=== PATIENT | male | born 1935 | race Caucasian/White ===

== ENCOUNTER 2018-02-06 09:44 | Observation (INO) ==
--- NOTE | 2018-02-06 11:29 | Emergency Department Note ---
START Narrative - START START: I examined this patient and my medical decision-making was reviewed with the COLOR EXPERT/PA/Advanced Practice Nurse/Resident Physician. I agree with the documented findings, disposition and treatment plan as described except to the extent set forth below. I did see the patient and spoke with him and examined him and patient does have weakness the point that he is not able to ambulate since yesterday and the patient is on Plavix and did fall and hit his head so he will have a head CT, labs, chest x-ray, urine testing and I did review the EKG showing normal sinus rhythm with a rate of 76 without evidence of arrhythmia. This does show evidence of right bundle-branch block. Test results pending. Patient bright and alert. He denies any pain in the head, neck, chest, abdomen or back. No vomiting or diarrhea or blood in the urine or stool or fever. He is here with his . [id number]
[2018-02-06 11:41] LABS: Basophils % 0.2 %; Eosinophils # 0.1 K/mcL (0.0-0.6); Hemoglobin 12.4 g/dL (12.9-16.9); Immature Granulocytes % 0.3 % (0-4); Lymphocytes # 0.8 K/mcL (0.6-4.6); Mean Corpuscular HGB Conc 32.6 g/dL (31.6-35.5); Mean Corpuscular Hemoglobin 29.5 pg (28.0-33.3); Mean Corpuscular Volume 90.3 fL (83.0-100.0); Mean Platelet Volume 9.8 fL (9.4-12.4); Monocytes # 0.5 K/mcL (0.0-1.3); Monocytes % 6.3 %; Neutrophils # 7.2 K/mcL (1.6-8.9); Platelet Count 179 K/mcL (140-400); Red Blood Count 4.21 M/mcL (4.19-5.50); Red Cell Distribution Width 12.3 % (11.5-14.5); Segmented Neutrophils % 83.2 %
[2018-02-06 11:58] LABS: Troponin I < 0.03 ng/mL (< 0.04)
[2018-02-06 12:06] LABS: BUN/Creatinine Ratio 13 (6-26); Blood Urea Nitrogen 18 mg/dL (8-23); Calcium 9.3 mg/dL (8.6-10.3); Carbon Dioxide 25 mEq/L (23-29); Chloride 105 mEq/L (98-107); Glucose 116 mg/dL (70-105); Osmolality,Calculated 293 (280-300); Potassium 3.9 mEq/L (3.5-5.1); Sodium 140 mEq/L (136-145); eGFR For African Americans 59 (> 60); eGFR For Non-African Americans 48 (> 60)
--- NOTE | 2018-02-06 12:09 | Emergency Department Note ---
Disposition Clinical Impression: Generalized weakness, Recurrent falls Disposition: Admitted As Inpatient Condition: Fair General Adult HPI - General Chief complaint: ED Weakness Stated complaint: weakness Time Seen by Provider: 02/06/18 10:10 Source: patient, family Mode of arrival: private vehicle Limitations: no limitations Nursing Notes Reviewed: Yes Vital Signs Reviewed: Yes - History of Present Illness HPI Narrative: Mr. Evan Elise, brought in by his , with past medical history of HTN, CKD stage III, R-sided stroke over 5 years ago, currently on Plavix, presents with 1 month onset of worsening weakness with fall 1 week ago where he hit the L side of his head. The fall was heard by in other room, who came in to find him conscious on his abdomen, he was not confused at the time nor has the noticed altered mentation since then. He endorses imbalance, leg weakness, generalized fatigue; denies headache, syncope, fever, weight loss, chest pain, shortness of breath, dizziness, or dysuria/urinary incontinence. Onset (ago): week(s) Pain Scale: 0 - Related Data Home Medications Medication Instructions Recorded Confirmed Clopidogrel [Plavix] 75 mg PO DAILY 04/12/16 02/05/18 Doxazosin Mesylate [Cardura Xl] 8 mg PO DAILY 04/12/16 02/05/18 Esomeprazole Magnesium [Nexium] 20 mg PO DAILY 04/12/16 02/05/18 Furosemide [Lasix] 20 mg PO QMWF 04/12/16 02/05/18 Simvastatin [Zocor] 20 mg PO HS 04/12/16 02/05/18 Tamsulosin HCl [Flomax] 0.4 mg PO DAILY 08/08/16 02/05/18 traMADol [Ultram] 50 mg PO DAILY 08/08/16 02/05/18 Cholecalciferol (Vitamin D3) 2,000 unit PO DAILY 02/05/18 02/05/18 [Vitamin D] Multivit-Min/FA/Lycopen/Lutein 1 each PO DAILY 02/05/18 02/05/18 [Centrum Silver Men Tablet] Metoprolol [Lopressor] 25 mg PO BID 02/06/18 02/06/18 OxyCODONE/APAP 7.5/325 [Percocet 1 tab PO BID PRN 02/06/18 02/06/18 7.5/325 MG] Polyethylene Glycol 3350 [MiraLAX] 17 gm PO DAILY 02/06/18 02/06/18 Allergies Allergy/AdvReac Type Severity Reaction Status Date / Time pregabalin [From Lyrica] Allergy See Verified 02/06/18 09:54 Comments gabapentin [From Neurontin] AdvReac Shakiness Verified 02/06/18 09:54 Constitutional: Denies: fever, chills ENT ED: Denies: congestion Cardiovascular: Denies: chest pain Respiratory: Denies: cough Gastrointestinal: Denies: abdominal pain Genitourinary: Denies: dysuria Musculoskeletal: Denies: back pain Neurological: Denies: headache Psychiatric: Denies: anxiety, depression Hematological/Lymphatic: Denies: easy bleeding Past Medical History - Past Medical History Medical history: Reports: aortic aneurysm, coronary artery disease, CVA, hyperlipidemia, hypertension, TIA, other Psychiatric history: Reports: no psych history - Social History Smoking Status: Former smoker Smokeless Tobacco Status: No Alcohol use: Reports: none Drug use: Reports: none Physical Exam - General Limitations: no limitations General appearance: alert, in no apparent distress - Head Head exam: other (L-side of forehead fading hematoma, no bleed, non-tender; no hemotympanum) - Eye Eye exam: Present: EOMI. Absent: periorbital swelling - Expanded Neck Exam Neck exam focused ED: Absent: thyroid enlargement, JVD, carotid bruit - Respiratory Respiratory exam: Present: normal lung sounds bilaterally. Absent: respiratory distress, wheezes, stridor, accessory muscle use - Cardiovascular Cardiovascular exam: Present: irregular rhythm, +S1, +S2. Absent: systolic murmur, diastolic murmur, rubs, gallop - Abdominal Exam Abdominal exam: Present: soft, Non-Tender. Absent: rigidity, Tijerina's sign, bruit, pulsatile mass - Extremities Exam Extremities exam: Present: other (no abrasion, cyanosis, or edema) - Expanded Lower Extremity Exam Hip/Pelvis exam: Present: full ROM. Absent: tenderness Lower leg exam: Absent: tenderness, laceration, Homans' sign - Neurological Exam Neurological exam: Present: alert, oriented X3, other (no facial droop, slurring of speech; has 4/5 muscle strength in bilateral lower extremities) - Skin Skin exam: Present: other (light, healing bruise L forehead) Course Course Narrative: Generalized Weakness x 1 month + fall with head contusion: ECG was obtained which showed no st elevation or depression, troponin negative CXR showed borderline cardiomegaly; also shows a mild left basilar opacity, possibly representing atelectasis or small infiltrate. At this time, Mr. Elise denies respiratory symptoms/cough/shortness of breath/fever, we have opted not to treat with antibiotics. CT head obtained showed no intracranial abnormality. CBC/BMP revealed no anemia or electrolyte abnormality. Urinalysis showed moderate blood, on chart review pt has history of trace-mod blood, currently his H&H is unremarkable. Pt is being admitted for further evaluation of weakness and recurrent fall. Vital Signs Temperature 98.2 F 02/06/18 09:46 Pulse Rate 77 02/06/18 09:46 Respiratory Rate 16 02/06/18 09:46 Blood Pressure 168/78 02/06/18 09:46 O2 Sat by Pulse Oximetry 96 02/06/18 09:46 Temperature 98.8 F 02/06/18 15:57 Pulse Rate 74 02/06/18 15:57 Respiratory Rate 16 02/06/18 15:57 Blood Pressure 179/77 02/06/18 15:57 O2 Sat by Pulse Oximetry 94 02/06/18 15:57 Oxygen Delivery Oxygen Delivery Room Air Medical Decision Making - Medical Records Medical records reviewed: Yes I reviewed the patient's medical records. - Lab Data Lab results reviewed: Yes I reviewed the patient's lab results. Result diagrams: 02/06/18 11:18 02/06/18 11:18 Lab Results 02/06/18 02/06/18 02/06/18 Range/Units 11:18 11:18 12:43 WBC 8.6 (4.3-11.1) K/mcL RBC 4.21 (4.19-5.50) M/mcL Hgb 12.4 L (12.9-16.9) g/dL Hct 38.0 (37.5-50.1) % MCV 90.3 (83.0-100.0) fL MCH 29.5 (28.0-33.3) pg MCHC 32.6 (31.6-35.5) g/dL RDW 12.3 (11.5-14.5) % Plt Count 179 (140-400) K/mcL MPV 9.8 (9.4-12.4) fL Immature Gran % 0.3 (0-4) % Seg Neutrophils % 83.2 % Lymphocytes % 9.0 % Monocytes % 6.3 % Eosinophils % 1.0 % Basophils % 0.2 % Neutrophils # 7.2 (1.6-8.9) K/mcL Lymphocytes # 0.8 (0.6-4.6) K/mcL Monocytes # 0.5 (0.0-1.3) K/mcL Eosinophils # 0.1 (0.0-0.6) K/mcL Basophils # 0.0 (0.0-0.2) K/mcL Sodium 140 (136-145) mEq/L Potassium 3.9 (3.5-5.1) mEq/L Chloride 105 (98-107) mEq/L Carbon Dioxide 25 (23-29) mEq/L BUN 18 (8-23) mg/dL Creatinine 1.40 H (0.70-1.30) mg/dL Est GFR ( Amer) 59 L (> 60) Est GFR (Non-Af Amer) 48 L (> 60) BUN/Creatinine Ratio 13 (6-26) Glucose 116 H (70-105) mg/dL Calculated Osmolality 293 (280-300) Calcium 9.3 (8.6-10.3) mg/dL Troponin I < 0.03 (< 0.04) ng/mL Urine Color Yellow (Yellow) Urine Clarity Clear (Clear) Urine pH 6.5 (5.0-8.0) pH Units Ur Specific [place] 1.014 (1.010-1.025) Urine Protein 30 H (Neg-Trace) mg/dL Urine Glucose (UA) Normal (Normal) mg/dL Urine Ketones Negative (Negative) mg/dL Urine Blood Moderate H (Negative) Urine Nitrite Negative (Negative) Urine Bilirubin Negative (Negative) Urine Urobilinogen Normal (Normal) mg/dL Ur Leukocyte Esterase Negative (Negative) Urine Microscopic RBC 5-15 H (0-3) per hpf Urine Microscopic WBC 0-3 (0-3) per hpf Ur Squamous Epith Cells Few (None-Few) per lpf Urine Bacteria None Seen (None-Few) per hpf Hyaline Casts None Seen (None-Few) per lpf - Radiology Data Radiology results reviewed: Yes I reviewed the patient's radiology results. Chest X-Ray 02/06/18 11:18 IMPRESSION: 1. Mild left basilar opacity, which could represent atelectasis or small infiltrate. 2. Borderline cardiomegaly. D/ / Anand Hillman MD / Anand Hillman MD Interpreting Provider: Anand Hillman MD Head CT 02/06/18 11:18 IMPRESSION: Multifocal small-vessel ischemic change and multiple old infarcts No mass or hemorrhage D/ / Alexei Cooper / Alexei Cooper Interpreting Provider: Alexei Cooper - EKG Data EKG #1 EKG attestation: Yes I reviewed and interpreted this EKG. EKG results narrative: ECG obtained 1000. Shows absence of p waves, Left axis deviation, no st elevation or depression. No t wave inversions in V2-6
[2018-02-06 13:36] LABS: Bilirubin,Urine Negative (Negative); Blood,Urine Moderate (Negative); Clarity,Urine Clear (Clear); Color,Urine Yellow (Yellow); Glucose,Urine (UA) Normal (Normal); Ketones,Urine Negative (Negative); Leukocyte Esterase,Urine Negative (Negative); Nitrite,Urine Negative (Negative); PH,Urine 6.5 pH Units (5.0-8.0); Protein,Urine 30 mg/dL (Neg-Trace); Specific Gravity,Urine 1.014 (1.010-1.025); Urobilinogen,Urine Normal (Normal)
[2018-02-06 13:38] LABS: Bacteria,Urine None Seen per hpf (None-Few); Hyaline Casts,Urine None Seen per lpf (None-Few); Squamous Epithelial Cell,Urine Few per lpf (None-Few); WBC,Urine 0-3 per hpf (0-3)
--- NOTE | 2018-02-06 14:39 | Internal Med History&Physical ---
Date of Encounter: 02/06/18 Time of Encounter: 14:31 Assessment and Plan (1) Generalized weakness Current visit: Yes Status: Acute Patient has complicated history of weakness with peripheral neuropathy of lower extremities as well. This is also complicated with several strokes he has had in the past and has not been as mobile since then. He has seen Neurology and Hematology/Oncology for evaluation in the past for neuropathy and weakness. He has been doing PT as an outpatient and has not had any improvement. Per reports and prior labs, he had normal A1C, folic acid, b12, tsh levels. Coordination of lower extremities is poor and currently it is difficult to say if this is in relation to prior CVAs or not. Will consult Neurology, recommendations are appreciated. Will do inpatient PT/OT evaluation once patient is off bed rest. He is currently unsafe to be discharged back home. (2) History of CVA (cerebrovascular accident) Current visit: Yes Status: Acute (3) Anemia Current visit: No Status: Acute Qualifiers: Anemia type: unspecified type Qualified Code(s): D64.9 - Anemia, unspecified (4) CKD (chronic kidney disease), stage III Current visit: No Status: Acute (5) Elevated serum immunoglobulin free light chain level Current visit: No Status: Acute He has had follow-up for this in Heme/Onc office as outpatient. He had an appointment yesterday with them and since his labs have been unremarkable, he did not need any further workup in regards to this. (6) HTN (hypertension) Current visit: No Status: Acute Qualifiers: Hypertension type: essential hypertension Qualified Code(s): I10 - Essential (primary) hypertension (7) Neuropathy, peripheral Current visit: No Status: Acute Chronic, non-diabetic with normal TSH, folate and vitmain B12 levels in the past. Seen by neurology for this and at one point treated by Heme/Onc service without resolve Qualifiers: Peripheral neuropathy type: polyneuropathy, unspecified Qualified Code(s): G62.9 - Polyneuropathy, unspecified (8) Recurrent falls Current visit: Yes Status: Acute related to problem #1 - fall precautions (9) Hematuria Current visit: Yes Status: Acute This may need further workup as outpatient. Qualifiers: Hematuria type: unspecified type Qualified Code(s): R31.9 - Hematuria, unspecified (10) Proteinuria Current visit: Yes Status: Acute This may need further workup as outpatient. Qualifiers: Proteinuria type: unspecified Qualified Code(s): R80.9 - Proteinuria, unspecified (11) BPH (benign prostatic hyperplasia) Current visit: Yes Status: Acute Continue Flomax Qualifiers: Lower urinary tract symptom presence: unspecified whether lower urinary tract symptoms present Qualified Code(s): N40.0 - Benign prostatic hyperplasia without lower urinary tract symptoms (12) DVT prophylaxis Current visit: Yes Status: Acute Patient is fall risk and so will use mechanical dvt prophylaxis Internal Medicine - H&P: HPI History of present illness: 82 year old male with past medical history of light chain dyscrasia, chronic neuropathy, CKD stage III, history of CVA was brought in by his for gradually worsening weakness and fatigue. Onset happened over period of months. He has had 3 falls since then and last week fell and hit head. He did not have any LOC. He has residual R side weakness for past 5 years. Patient has been by neurology service in the past because of chronic neuropathy and some weakness. Currently, patient works with physical therapy but does not get any sort of improvement in strength. He denies fevers/chills, recent illness, diarrhea, syncope, chest pain, shortness of breath. Patient has had neuropathy for over 10 years with no history of diabetes, normal B12, TSH, and folic acid levels. He sees Hematology/Oncology for elevated serum light chains or possible multiple myeloma. On arrival to ED patient had CT of head that showed no acute process, did show remote infarcts. Chest x-ray showed left lower lobe opacity thought to be atelectasis versus pneumonia. Urinalysis was negative for UTI but did show hematuria and proteinuria. Past Med Surg Social Fam HX - Past Medical History Medical history: aortic aneurysm, coronary artery disease, CVA, hyperlipidemia, hypertension, TIA, other Psychiatric history: no psych history - Social History Smoking Status: Former smoker Smokeless Tobacco Status: No Alcohol use: none Drug use: none Internal Medicine - H&P: Meds Clopidogrel [Plavix] 75 mg PO DAILY 04/12/16 [History] Doxazosin Mesylate [Cardura Xl] 8 mg PO DAILY 04/12/16 [History] Esomeprazole Magnesium [Nexium] 20 mg PO DAILY 04/12/16 [History] Furosemide [Lasix] 20 mg PO QMWF 04/12/16 [History] Simvastatin [Zocor] 20 mg PO HS 04/12/16 [History] Tamsulosin HCl [Flomax] 0.4 mg PO DAILY 08/08/16 [History] traMADol [Ultram] 50 mg PO DAILY 08/08/16 [History] Cholecalciferol (Vitamin D3) [Vitamin D] 2,000 unit PO DAILY 02/05/18 [History] Multivit-Min/FA/Lycopen/Lutein [Centrum Silver Men Tablet] 1 each PO DAILY 02/05 [History] Metoprolol [Lopressor] 25 mg PO BID 02/06/18 [History] OxyCODONE/APAP 7.5/325 [Percocet 7.5/325 MG] 1 tab PO BID PRN 02/06/18 [History] Polyethylene Glycol 3350 [MiraLAX] 17 gm PO DAILY 02/06/18 [History] 3 Allergy/AdvReac Type Severity Reaction Status Date / Time pregabalin [From Lyrica] Allergy See Verified 02/06/18 09:54 Comments gabapentin [From Neurontin] AdvReac Shakiness Verified 02/06/18 09:54 All Systems PM: A 10-system review of systems was performed and is negative for pertinent findings except as documented above in the HPI. Review of systems: As per HPI - Constitutional Vitals: Temp Pulse Resp BP Pulse Ox 98.2 F 75 16 170/107 96 02/06/18 09:46 02/06/18 13:13 02/06/18 13:13 02/06/18 13:13 02/06/18 13:13 - Head Head exam: Present: atraumatic, normocephalic - Eye Eye exam: Present: PERRL, conjuntiva pink, sclera anicteric Pupils: Present: PERRL - Neck Neck exam general surgery: Present: supple, trachea midline. Absent: lymphadenopathy - Respiratory Respiratory exam: Present: CTAB. Absent: accessory muscle use, rales, rhonchi, wheezes - Cardiovascular Cardiovascular exam: Present: RRR, +S1, +S2. Absent: diastolic murmur, gallop, rubs, systolic murmur - GI/Abdominal GI/Abdominal exam: Present: normal bowel sounds, soft, no peritoneal signs. Absent: distended, tenderness - Extremities Exam Extremities exam: Present: warm, radial pulses palpable and symmetrical. Absent : calf tenderness, cyanotic, pedal edema Additional comments: weakness of lower extremities - Neurological Exam Neurological exam: Present: CN II-XII intact, motor sensory deficit, oriented X3 , no focal deficits. Absent: alert, altered, normal gait, reflexes normal, pronater drift, facial droop, speech deficit Additional comments: Unable to perform gait exam because patient is unable to ambulate. - Expanded Neurological Exam Cerebellar function: heel to chowdary: Abnormal Left, Abnormal Right Upper motor neuron: [place] neglect: Normal, pronator drift: Normal, sensory extinction: Normal Sensory exam: LE 2 point discrimination: Normal, lower extremity light touch: Normal, lower extremity pin prick: Normal Neuro motor strength exam: LUE: 4, RUE: 4, LLE: 3, RLE: 3 - Skin Skin exam: Present: dry, intact Additional comments: right forearm abrasion, left elbow abrasion. Internal Med - H&P Results - Labs CBC & Chem 7: 02/06/18 11:18 02/06/18 11:18
[2018-02-06] MEDS ORDERED: Naloxone 0.4 MG/ML INJ IVP PRN (15:01)
--- NOTE | 2018-02-06 18:02 | Neurology - Consult Note ---
Date of Encounter: 02/06/18 Time of Encounter: 15:30 Assessment and Plan (1) Generalized weakness Current Visit: Yes Status: Acute I agree that this appears to be a generalized weakness other than focal leg weakness. He is able to lift his legs off the bed easily at present time but does need assistance to walk. 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 his neurological examination showed preserved DTRs at the upper extremities but absent DTRs in his knees and ankles consistent with diffuse peripheral polyneuropathy likely from history of diabetes. Presence of DTRs in hid upper extremities argue against diagnosis of Guiilain Lincoln syndrome. He denies significant back pain but he does have history of lumbar spine surgery and is on chronic pain regimen. Overall speaking the weakness has been fluctuating in the last few months therefore most likely these may be complicated by medical conditions, on top of his history of peripheral neuropathy. in terms of neurological conditions would recommend MRI of cervical spine to assess possibility of cervical myelopathy since he dose have urinary frequency and preserved DTRS in his arms. Absent DTRs in his legs can be masked by coexisting peripheral neuropathy. Will obtain MRI of lumbar spine as well to complete the work up. Please continue medical and supportive care. Thank you very much for the consultation. Total time spend in this case was approximately 55 minutes. History of Present Illness Chief complaint: bilateral leg weakness HPI: Mr. Elise is a 82 year old male with PMH significant for DM, diabetic peripheral neuropathy, CKD, chronic pain, s/p lumbar spine surgery who presented to the ER with acute onset of weakness. He is interviewed in the presence of his son. He states that over the last few months, every one or two days in a week he would feel weakness and can not get out of bed. Apparently he developed another such as episode only that it was more severe. This occurred yesterday 2pm he developed weakness and was unable to walk. he feels weak all over but mostly in his legs. He needs assistance to walk. initial CT of head was reported no acute intracranial abnormality. he denies significant pain. He does have chronic pain syndrome and is on chronic pain regimen. He has urinary frequency and says that he needs to go to bathroom every one or two hours. He has history of peripheral neuropathy from diabetes, and he also has chronic kidney disease. Past Med Surg Social Fam HX - Past Medical History Medical history: aortic aneurysm, coronary artery disease, CVA, hyperlipidemia, hypertension, TIA, other Psychiatric history: no psych history - Social History Smoking Status: Former smoker Smokeless Tobacco Status: No Alcohol use: none Drug use: none Medications and Allergies Clopidogrel [Plavix] 75 mg PO DAILY 04/12/16 [History] Doxazosin Mesylate [Cardura Xl] 8 mg PO DAILY 04/12/16 [History] Esomeprazole Magnesium [Nexium] 20 mg PO DAILY 04/12/16 [History] Furosemide [Lasix] 20 mg PO QMWF 04/12/16 [History] Simvastatin [Zocor] 20 mg PO HS 04/12/16 [History] Tamsulosin HCl [Flomax] 0.4 mg PO DAILY 08/08/16 [History] traMADol [Ultram] 50 mg PO DAILY 08/08/16 [History] Cholecalciferol (Vitamin D3) [Vitamin D] 2,000 unit PO DAILY 02/05/18 [History] Multivit-Min/FA/Lycopen/Lutein [Centrum Silver Men Tablet] 1 each PO DAILY 02/05 [History] Metoprolol [Lopressor] 25 mg PO BID 02/06/18 [History] OxyCODONE/APAP 7.5/325 [Percocet 7.5/325 MG] 1 tab PO BID PRN 02/06/18 [History] Polyethylene Glycol 3350 [MiraLAX] 17 gm PO DAILY 02/06/18 [History] 3 Allergy/AdvReac Type Severity Reaction Status Date / Time pregabalin [From Lyrica] Allergy See Verified 02/06/18 09:54 Comments gabapentin [From Neurontin] AdvReac Shakiness Verified 02/06/18 09:54 All Systems: The remainder of the systems were reviewed and are negative Physical Examination - Vital Signs Vital Signs: Initial Vital Signs Temp Pulse Resp BP Pulse Ox 98.2 F 77 16 168/78 96 02/06/18 09:46 02/06/18 09:46 02/06/18 09:46 02/06/18 09:46 02/06/18 09:46 - Constitutional General appearance: chronically ill - Neurologic Sensorimotor examination: other (stokcing pattern of sensory reduction noted bilaterally. ) Motor examination - right side: 4/5: deltoids, biceps, triceps, wrist flexion, wrist extension, manufacturer, hip flexors, tibialis Anterior, quadriceps, toe extension (EHL), plantarflexion Motor examination - left side: 4/5: deltoids, biceps, triceps, wrist flexion, wrist extension, hip flexors, manufacturer, quadriceps, tibialis Anterior, toe extension (EHL), plantarflexion Detailed sensory examination: other (Stocking pattern of sensory reduction noted bilaterally) Posture: other (None) Reflexes: Biceps: 2+, Triceps: 2+, Brachioradialis: 2+, Patella: 0, Achilles: 0 Mental Status Examination: awake, alert, oriented to person, oriented to place, oriented to time, follows commands appropriately, answers questions appropriately, no agnosia, no aphasia, no aproxia Cranial nerve examination: PERRL, EOMI, visual mendoza intact, corneal reflexes brisk symmetrically, sensory to face intact, mastication intact, no facial asymmetry is present, no dysarthria, hearing is intact symmetrically, soft palate elevates bilaterally upon phonation, gag reflex intact, flexes SCM and trapezius muscles symmetrically with full power, tongue protrudes midline, no atrophy or facial fasiculations present Cerebellar examination: no dysmetria, performs finger to nose and heel to chowdary symmetrically without ataxia (Normal FTN), no gait ataxia (Gait not assessed), no truncal ataxia (Gait not assessed), no difficulty with rapid alternating movements Results - Laboratory Findings CBC and BMP: 02/06/18 11:18 02/06/18 11:18 Abnormal lab findings: Abnormal lab results Hgb 12.4 g/dL (12.9-16.9) L 02/06/18 11:18 Creatinine 1.40 mg/dL (0.70-1.30) H 02/06/18 11:18 Est GFR ( Amer) 59 (> 60) L 02/06/18 11:18 Est GFR (Non-Af Amer) 48 (> 60) L 02/06/18 11:18 Glucose 116 mg/dL (70-105) H 02/06/18 11:18 Urine Protein 30 mg/dL (Neg-Trace) H 02/06/18 12:43 Urine Blood Moderate (Negative) H 02/06/18 12:43 Urine Microscopic RBC 5-15 per hpf (0-3) H 02/06/18 12:43 - Diagnostic Findings Additional findings: CT/CT head/brain wo con IMPRESSION: Multifocal small-vessel ischemic change and multiple old infarcts No mass or hemorrhage Consult Discharge Plan - Plan Referrals: Cher Angulo CNP [Primary Care Provider] -
[2018-02-07] MEDS: *HR* OxyCODONE/APAP 7.5/325 TABLET PO PRN (04:30)
[2018-02-07 06:26] LABS: Basophils % 0.3 %; Eosinophils # 0.1 K/mcL (0.0-0.6); Eosinophils % 0.6 %; Hemoglobin 11.5 g/dL (12.9-16.9); Immature Granulocytes % 0.3 % (0-4); Lymphocytes # 0.8 K/mcL (0.6-4.6); Mean Corpuscular HGB Conc 32.9 g/dL (31.6-35.5); Mean Corpuscular Volume 88.4 fL (83.0-100.0); Mean Platelet Volume 9.9 fL (9.4-12.4); Monocytes # 0.5 K/mcL (0.0-1.3); Monocytes % 6.6 %; Neutrophils # 6.6 K/mcL (1.6-8.9); Platelet Count 165 K/mcL (140-400); Red Blood Count 3.96 M/mcL (4.19-5.50); Red Cell Distribution Width 12.1 % (11.5-14.5); Segmented Neutrophils % 82.2 %
[2018-02-07 06:27] LABS: INR 1.3; Prothrombin Time 13.8 Seconds (9.4-12.1)
[2018-02-07 06:44] LABS: Alanine Aminotransferase 8 Units/L (7-52); Albumin 3.7 g/dL (3.5-5.7); Alkaline Phosphatase 56 Units/L (34-104); Aspartate Amino Transferase 13 Units/L (13-39); BUN/Creatinine Ratio 15 (6-26); Bilirubin,Total 1.1 mg/dL (0.3-1.0); Blood Urea Nitrogen 19 mg/dL (8-23); Calcium 8.9 mg/dL (8.6-10.3); Carbon Dioxide 25 mEq/L (23-29); Chloride 108 mEq/L (98-107); Glucose 94 mg/dL (70-105); Osmolality,Calculated 290 (280-300); Phosphorous 3.5 mg/dL (2.7-4.5); Potassium 4.1 mEq/L (3.5-5.1); Sodium 139 mEq/L (136-145); Total Protein 5.8 g/dL (6.4-8.9); eGFR For African Americans > 60 (> 60); eGFR For Non-African Americans 53 (> 60)
[2018-02-07 06:45] LABS: Albumin/Globulin Ratio 1.8 (1.1-2.2); Globulin 2.1 g/dL (2.4-3.5)
[2018-02-07] MEDS: traMADol 50 MG TABLET PO SCH (08:17)
[2018-02-07] MEDS: Cholecalciferol (D-3) 1,000 UNIT TABLET PO SCH (08:17)
[2018-02-07] MEDS: Multivit/Ca/Min/Fe/FA 1 TAB TABLET PO SCH (08:17)
--- NOTE | 2018-02-07 13:04 | Neurology Progress Note ---
Date of Encounter: 02/07/18 Time of Encounter: 13:02 Assessment and Plan (1) Generalized weakness Current Visit: Yes Status: Acute I believe that his leg weakness are secondary to chronic worsening distal peripheral neuropathy and de-conditioning. his neurological examination showed bilateral leg weakness, with muscle strength at least 4/5 bilaterally. He has no knee or ankle reflex which is consistent with distal neuropathy, but DTRs in the upper extremities are well preserved and this argue against diagnosis of Guillain barre syndrome. His symptom have been going on intermittently in the last few months so the course of the disease not consistent with GUillain barre syndrome. He has no signs of ALS or other neurological conditions that cause muscle weakness. MRI of cervical spine showed no evidence of myelopathy. Recommend PT and social work evaluation for rehab. From neurological perspective , will recommend no further inpatient testing. He can follow up with DR. Lainez as outpatient for his peripheral neuropathy. he has seen Dr. Lainez in the past. Total time spent with this case abour 35 minutes. Subjective Principal diagnosis: leg weakness Interval history: Patient seen and examined. He is wide awake and says that he does not know whether he is better or not since he did not get up and walk. He is able to lift his legs off the bed bilaterally. MRI of cervical and lumbar spine review and i did not identify any significant pathology that can explain his leg weakness. Objective - Constitutional Vitals: Temp Pulse Resp BP Pulse Ox 98.3 F 56 16 169/73 90 02/07/18 10:10 02/07/18 10:10 02/07/18 10:10 02/07/18 10:10 02/07/18 10:10 - Neurological Exam Sensorimotor examination: Present: other (stokcing pattern of sensory reduction noted bilaterally. ) Motor examination - left side: 4/5: deltoids, biceps, triceps, wrist flexion, wrist extension, hip flexors, knowledge manager, quadriceps, tibialis Anterior, toe extension (EHL), plantarflexion Sensation intact: Present: other (Stocking pattern of sensory reduction noted bilaterally) Posture: Present: other (None) Mental Status Examination: Present: awake, alert, oriented to person, oriented to place, oriented to time, follows commands appropriately, answers questions appropriately, no agnosia, no aphasia, no aproxia Cranial nerve examination: Present: PERRL, EOMI, visual mendoza intact, corneal reflexes brisk symmetrically, sensory to face intact, mastication intact, no facial asymmetry is present, no dysarthria, hearing is intact symmetrically, soft palate elevates bilaterally upon phonation, gag reflex intact, flexes SCM and trapezius muscles symmetrically with full power, tongue protrudes midline, no atrophy or facial fasiculations present Cerebellar examination: Present: no dysmetria, performs finger to nose and heel to chowdary symmetrically without ataxia (Normal FTN), no gait ataxia (Gait not assessed), no truncal ataxia (Gait not assessed), no difficulty with rapid alternating movements Results - Laboratory Findings CBC and BMP: 02/07/18 05:36 02/07/18 05:36 Abnormal lab findings: Abnormal lab results RBC 3.96 M/mcL (4.19-5.50) L 02/07/18 05:36 Hgb 11.5 g/dL (12.9-16.9) L 02/07/18 05:36 Hct 35.0 % (37.5-50.1) L 02/07/18 05:36 PT 13.8 Seconds (9.4-12.1) H 02/07/18 05:36 Chloride 108 mEq/L (98-107) H 02/07/18 05:36 Est GFR (Non-Af Amer) 53 (> 60) L 02/07/18 05:36 Total Bilirubin 1.1 mg/dL (0.3-1.0) H 02/07/18 05:36 Serum Total Protein 5.8 g/dL (6.4-8.9) L 02/07/18 05:36 Globulin 2.1 g/dL (2.4-3.5) L 02/07/18 05:36 Urine Protein 30 mg/dL (Neg-Trace) H 02/06/18 12:43 Urine Blood Moderate (Negative) H 02/06/18 12:43 Urine Microscopic RBC 5-15 per hpf (0-3) H 02/06/18 12:43 - Diagnostic Findings Additional findings: MR/MR cervical spine wo con IMPRESSION: Mild degenerative changes without significant canal narrowing. No cord compression. No cord signal abnormality. MR/MR lumbar spine wo con IMPRESSION: No severe spinal canal or foraminal stenosis. CT/CT head/brain wo con IMPRESSION: Multifocal small-vessel ischemic change and multiple old infarcts No mass or hemorrhage Consult Discharge Plan - Plan Referrals: Cher Angulo CNP [Primary Care Provider] -
--- NOTE | 2018-02-07 16:05 | Internal Med Progress Note ---
Date of Encounter: 02/07/18 Time of Encounter: 15:42 - Assessment and plan (1) Neuropathy, peripheral Current Visit: No Status: Acute Assessment and plan: per hx. Follows with [facility] neuropathy clinic. Last seen 01/2017 and was recommended to have EMG/NCV study at that time. Now with worsening generalized weakness and deconditioning. Cervical and lumbar spine without severe/ significant stenosis. Evaluated by neurology who noted symptoms consistent with peripheral neuropathy and did not feel symptoms were secondary to a central neurological etiology. Cont supportive acre for now. PT/OT. Will discuss the possibility of transfer to [facility] Qualifiers: Peripheral neuropathy type: polyneuropathy, unspecified Qualified Code(s): G62.9 - Polyneuropathy, unspecified (2) History of CVA (cerebrovascular accident) Current Visit: Yes Status: Acute Assessment and plan: per hx. Cont home Plavix, BB, statin (3) HTN (hypertension) Current Visit: No Status: Acute Assessment and plan: per hx. BP controlled. Continue home BB add low-dose amlodipine. Monitor BP and titrate PRN Qualifiers: Hypertension type: essential hypertension Qualified Code(s): I10 - Essential (primary) hypertension (4) Recurrent falls Current Visit: Yes Status: Acute (5) DVT prophylaxis Current Visit: Yes Status: Acute - Subjective Interval history: Seen and examined at bedside, , patient is new to me. Information obtained from chart review and patient report. Sitting up on bedside commode, working with therapy. - Constitutional Vitals: Temp Pulse Resp BP Pulse Ox 97.3 F L 70 15 164/92 96 02/07/18 14:48 02/07/18 14:48 02/07/18 14:48 02/07/18 14:48 02/07/18 14:48 Internal Medicine: Result - Labs CBC & Chem 7: 02/07/18 05:36 02/07/18 05:36 Labs: Short CBC 02/07/18 Range/Units 05:36 WBC 8.0 (4.3-11.1) K/mcL Hgb 11.5 L (12.9-16.9) g/dL Hct 35.0 L (37.5-50.1) % Plt Count 165 (140-400) K/mcL Neutrophils # 6.6 (1.6-8.9) K/mcL BMP 02/07/18 05:36 Sodium 139 Potassium 4.1 Chloride 108 H Carbon Dioxide 25 BUN 19 Creatinine 1.29 Glucose 94 Calcium 8.9 Liver Function 02/07/18 Range/Units 05:36 Total Bilirubin 1.1 H (0.3-1.0) mg/dL AST 13 (13-39) Units/L ALT 8 (7-52) Units/L Alkaline Phosphatase 56 (34-104) Units/L Albumin 3.7 (3.5-5.7) g/dL - ABG Interpretation ABG results: PT/INR, D-dimer PT 13.8 Seconds (9.4-12.1) H 02/07/18 05:36 - Impressions Impressions Cervical Spine MRI 02/06/18 15:19 IMPRESSION: Mild degenerative changes without significant canal narrowing. No cord compression. No cord signal abnormality. D/ / Navjot Davalos MD / Navjot Davalos MD Interpreting Provider: Navjot Davalos MD Lumbar Spine MRI 02/06/18 15:20 IMPRESSION: No severe spinal canal or foraminal stenosis. D/ / 02/06/2018 22:03:23 Wilbert Romano MD / lito Interpreting Provider: Wilbert Romano MD Consult Discharge Plan - Plan Referrals: Cher Angulo, DIANDRA [Primary Care Provider] -
[2018-02-07] MEDS: amLODIPine 5 MG TABLET PO SCH (18:04)
[2018-02-07] MEDS: *HR* Heparin 5,000 UNIT/ML VIAL SQ SCH (23:02)
[2018-02-08] MEDS: Acetaminophen 325 MG TABLET PO PRN (03:36)
[2018-02-08] MEDS: *HR* OxyCODONE/APAP 7.5/325 TABLET PO PRN ×2 (03:43→21:23)
[2018-02-08] MEDS: *HR* Heparin 5,000 UNIT/ML VIAL SQ SCH ×3 (04:55→20:51)
[2018-02-08] MEDS: traMADol 50 MG TABLET PO SCH (08:47)
[2018-02-08] MEDS: Multivit/Ca/Min/Fe/FA 1 TAB TABLET PO SCH (08:48)
[2018-02-08] MEDS: amLODIPine 5 MG TABLET PO SCH (08:48)
[2018-02-08] MEDS: Cholecalciferol (D-3) 1,000 UNIT TABLET PO SCH (08:48)
[2018-02-08] MEDS ORDERED: Furosemide 40 MG/4 ML VIAL IVP ONE (14:57)
--- NOTE | 2018-02-08 16:09 | Internal Med Progress Note ---
Date of Encounter: 02/08/18 Time of Encounter: 16:06 - Assessment and plan (1) Neuropathy, peripheral Current Visit: No Status: Acute Assessment and plan: per hx. Previously evaluated by [facility] neuropathy clinic. Last seen 01/2017 and was recommended to have EMG/NCV study at that time. Now with worsening generalized weakness, deconditioning and falls. Cervical and lumbar spine without severe/significant stenosis. Evaluated by neurology who noted symptoms consistent with peripheral neuropathy and did not feel symptoms were secondary to a central neurological etiology. Cont supportive acre for now. PT/OT. Will discuss the possibility of transfer to [facility] Qualifiers: Peripheral neuropathy type: polyneuropathy, unspecified Qualified Code(s): G62.9 - Polyneuropathy, unspecified (2) History of CVA (cerebrovascular accident) Current Visit: Yes Status: Acute Assessment and plan: per hx. Cont home Plavix, BB, statin (3) HTN (hypertension) Current Visit: No Status: Acute Assessment and plan: per hx. BP controlled. Continue home BB add low-dose amlodipine. Monitor BP and titrate PRN Qualifiers: Hypertension type: essential hypertension Qualified Code(s): I10 - Essential (primary) hypertension (4) Recurrent falls Current Visit: Yes Status: Acute Assessment and plan: In the setting of peripheral neuropathy as noted above. Continue fall precautions, PT/OT. Will likely need SNF. (5) DVT prophylaxis Current Visit: Yes Status: Acute Assessment and plan: heparin - Subjective Interval history: Seen and examined at bedside;information obtained from chart review, patient report and . Patient says he feels weak and tired, essentially unchanged from yesterday's exam. reports patient appears worse than presentation. Says he is not eating much and appears to be more shaky/jittery. His history of peripheral neuropathy and does endorse that he is followed with specialists at [facility]. Says she was never advised to have outpatient testing done. The possibility of transferring to [facility] or other tertiary hospital for higher level care for further neuromuscular diagnostic testing. like to hold at this time. - Constitutional Vitals: Temp Pulse Resp BP Pulse Ox 98.7 F 108 18 156/75 96 02/08/18 15:29 02/08/18 15:29 02/08/18 15:29 02/08/18 15:29 02/08/18 15:29 General appearance: Present: A&O X 3, pleasant - Head Head exam: Present: atraumatic, normocephalic - Eye Eye exam: Present: PERRL, conjuntiva pink, sclera anicteric Pupils: Present: PERRL - Neck Neck exam general surgery: Present: supple, trachea midline. Absent: lymphadenopathy - Respiratory Respiratory exam: Present: CTAB, rales, rhonchi. Absent: accessory muscle use, wheezes - Cardiovascular Cardiovascular exam: Present: RRR, +S1, +S2. Absent: diastolic murmur, gallop, rubs, systolic murmur - GI/Abdominal GI/Abdominal exam: Present: normal bowel sounds, soft, no peritoneal signs. Absent: distended, tenderness - Extremities Exam Extremities exam: Present: pedal edema, warm, radial pulses palpable and symmetrical. Absent: calf tenderness, cyanotic - Neurological Exam Neurological exam: Present: CN II-XII intact, oriented X3, no focal deficits. Absent: pronater drift, facial droop, speech deficit - Skin Skin exam: Present: dry, intact Internal Medicine: Result - Labs CBC & Chem 7: 02/07/18 05:36 02/07/18 05:36 - ABG Interpretation ABG results: PT/INR, D-dimer PT 13.8 Seconds (9.4-12.1) H 02/07/18 05:36 - Impressions Impressions Chest X-Ray 02/08/18 12:22 IMPRESSION: Patient slightly rotated with a questionable small left pleural effusion. Otherwise stable chest from 02/06/2018. D/ / Khadijah Hope MD / Khadijah Hope MD Interpreting Provider: Khadijah Hope MD Consult Discharge Plan - Plan Referrals: Cher Angulo, DIANDRA [Primary Care Provider] -
[2018-02-09] MEDS: *HR* Heparin 5,000 UNIT/ML VIAL SQ SCH ×3 (05:03→22:56)
[2018-02-09 05:48] LABS: Hematocrit 35.6 % (37.5-50.1); Hemoglobin 11.9 g/dL (12.9-16.9); Mean Corpuscular HGB Conc 33.4 g/dL (31.6-35.5); Mean Corpuscular Hemoglobin 29.6 pg (28.0-33.3); Mean Corpuscular Volume 88.6 fL (83.0-100.0); Mean Platelet Volume 9.6 fL (9.4-12.4); Platelet Count 167 K/mcL (140-400); Red Blood Count 4.02 M/mcL (4.19-5.50)
[2018-02-09 06:13] LABS: Calcium 8.8 mg/dL (8.6-10.3); Potassium 3.9 mEq/L (3.5-5.1)
[2018-02-09] MEDS: traMADol 50 MG TABLET PO SCH (09:48)
[2018-02-09] MEDS: Multivit/Ca/Min/Fe/FA 1 TAB TABLET PO SCH (09:48)
[2018-02-09] MEDS: amLODIPine 5 MG TABLET PO SCH (09:49)
[2018-02-09] MEDS: Cholecalciferol (D-3) 1,000 UNIT TABLET PO SCH (09:49)
[2018-02-09] MEDS: Furosemide 20 MG TABLET PO SCH (09:50)
[2018-02-09] MEDS: *HR* OxyCODONE/APAP 7.5/325 TABLET PO PRN (14:03)
[2018-02-09] MEDS ORDERED: 0.9 % Sodium Chloride 1,000 ML IVC SCH (16:45)
--- NOTE | 2018-02-09 16:51 | Internal Med Progress Note ---
Date of Encounter: 02/09/18 Time of Encounter: 16:56 - Assessment and plan (1) Neuropathy, peripheral Current Visit: No Status: Acute Assessment and plan: per hx. Previously evaluated by [facility] neuropathy clinic. Last seen 01/2017 and was recommended to have EMG/NCV study at that time. Now with worsening generalized weakness, deconditioning and falls. Cervical and lumbar spine without severe/significant stenosis. Evaluated by neurology who noted symptoms consistent with peripheral neuropathy and did not feel symptoms were secondary to a central neurological etiology. Cont supportive acre for now. PT/OT. Will discuss the possibility of transfer to [facility] Qualifiers: Peripheral neuropathy type: polyneuropathy, unspecified Qualified Code(s): G62.9 - Polyneuropathy, unspecified (2) History of CVA (cerebrovascular accident) Current Visit: Yes Status: Acute Assessment and plan: per hx. Cont home Plavix, BB, statin (3) HTN (hypertension) Current Visit: No Status: Acute Assessment and plan: per hx. BP controlled. Continue home BB add low-dose amlodipine. Monitor BP and titrate PRN Qualifiers: Hypertension type: essential hypertension Qualified Code(s): I10 - Essential (primary) hypertension (4) Recurrent falls Current Visit: Yes Status: Acute Assessment and plan: In the setting of peripheral neuropathy as noted above. Continue fall precautions, PT/OT. Will likely need SNF. (5) CKD (chronic kidney disease), stage III Current Visit: No Status: Acute Assessment and plan: per hx. Renal function at baseline (6) DVT prophylaxis Current Visit: Yes Status: Acute Assessment and plan: heparin - Subjective Interval history: Seen and examined at bedside. Says he feels about the same, worked with PT a little bit today but did not get out of bed. Still with lower extremity weakness with associated numbness and tingling. at bedside and updated. She would like to defer transfer to [facility] at this time. Would like patient to go to [facility] and gain some strength with [facility] outpatient follow-up. - Constitutional Vitals: Temp Pulse Resp BP Pulse Ox 100 F H 82 16 111/69 92 02/09/18 15:34 02/09/18 15:34 02/09/18 15:34 02/09/18 15:34 02/09/18 15:34 General appearance: Present: A&O X 2, A&O X 3, pleasant - Head Head exam: Present: atraumatic, normocephalic - Eye Eye exam: Present: PERRL, conjuntiva pink, sclera anicteric Pupils: Present: PERRL - Neck Neck exam general surgery: Present: supple, trachea midline. Absent: lymphadenopathy - Respiratory Respiratory exam: Present: CTAB. Absent: accessory muscle use, rales, rhonchi, wheezes - Cardiovascular Cardiovascular exam: Present: RRR, +S1, +S2. Absent: diastolic murmur, gallop, rubs, systolic murmur - GI/Abdominal GI/Abdominal exam: Present: normal bowel sounds, soft, no peritoneal signs. Absent: distended, tenderness - Extremities Exam Extremities exam: Present: warm, radial pulses palpable and symmetrical. Absent : calf tenderness, cyanotic, pedal edema - Neurological Exam Neurological exam: Present: CN II-XII intact, oriented X3, no focal deficits. Absent: normal gait, strengths equal and symetr throughout, pronater drift, facial droop, speech deficit - Skin Skin exam: Present: dry, intact Internal Medicine: Result - Labs CBC & Chem 7: 02/09/18 05:31 02/09/18 05:31 Labs: Short CBC 02/09/18 Range/Units 05:31 WBC 11.5 H (4.3-11.1) K/mcL Hgb 11.9 L (12.9-16.9) g/dL Hct 35.6 L (37.5-50.1) % Plt Count 167 (140-400) K/mcL BMP 02/09/18 05:31 Sodium 137 Potassium 3.9 Chloride 105 Carbon Dioxide 23 BUN 37 H Creatinine 1.46 H Glucose 100 Calcium 8.8 - ABG Interpretation ABG results: PT/INR, D-dimer PT 13.8 Seconds (9.4-12.1) H 02/07/18 05:36 Consult Discharge Plan - Plan Referrals: Cher Angulo CNP [Primary Care Provider] -
[2018-02-09 18:51] LABS: Bilirubin,Urine Small (Negative); Blood,Urine Moderate (Negative); Clarity,Urine Cloudy (Clear); Color,Urine Dark Yellow (Yellow); Glucose,Urine (UA) Normal (Normal); Ketones,Urine 15 mg/dL (Negative); Leukocyte Esterase,Urine Negative (Negative); Nitrite,Urine Negative (Negative); PH,Urine 5.5 pH Units (5.0-8.0); Protein,Urine 100 mg/dL (Neg-Trace); Specific Gravity,Urine 1.026 (1.010-1.025); Urobilinogen,Urine Normal (Normal)
[2018-02-09 18:53] LABS: Bacteria,Urine None Seen per hpf (None-Few); Hyaline Casts,Urine None Seen per lpf (None-Few); Squamous Epithelial Cell,Urine Moderate per lpf (None-Few); WBC,Urine 0-3 per hpf (0-3)
[2018-02-09 19:24] LABS: RBC,Urine 0-3 per hpf (0-3)
--- NOTE | 2018-02-09 21:23 | Neurology Progress Note ---
Date of Encounter: 02/09/18 Time of Encounter: 17:00 Assessment and Plan (1) Generalized weakness Current Visit: Yes Status: Deleted Again the thinking is that his leg weakness are likely the combination of general de-conditioning, muscle disuse, aggravated by presence of leg pain requiring narcotic regimen. he has no evidence of ALS, progressive myopathy, or myelopathy that can explain his clinical symptoms. He has brisk DTRs to the upper extremities therefore Guillain barre or CIDP are unlikely. I did discuss with him the possibility of transferring him to [facility] and he likes to stay her. Will recommend PT for leg strengthening and EMG/NCV can be done here at [place] as an outpatient. tata time spent on this case today is approximately 35 minutes Subjective Principal diagnosis: leg weakness Interval history: Patient seen and examined. Patient has been doing slightly better. is feeding him and says that he is able to eat a little bit without any difficulty. his past medical records at [facility] were reviewed and again the course of his leg weakness were discussed again. mentions that the patient used to walk really fast, we are talking about more than 20years ago maybe and then over the last few years he has developed pain and paresthesia involving his feet. initially, this was thought to be related to his back and he did have back surgery many years ago which did not help the leg pain. Over the last few years has witnessed gradually decline of his ability to walk and finally over the last few weeks simply gave up. He saw neuromuscular specialist one year ago at [facility], who suggested EMG/NCV but he did not follow up with the neurologist. It was thought that he has adult onset progressive hypoesthesia and hyperalgesia in his legs and feet. he did have unbalanced gait and leg weakness. mention that his right leg was weaker due to history of stroke. . Objective - Constitutional Vitals: Temp Pulse Resp BP Pulse Ox 97.8 F 100 18 131/85 91 02/09/18 19:25 02/09/18 19:25 02/09/18 19:25 02/09/18 19:25 02/09/18 19:25 - Neurological Exam Sensorimotor examination: Present: other (stokcing pattern of sensory reduction noted bilaterally. ) Motor examination - left side: 45: deltoids, biceps, triceps, wrist flexion, wrist extension, hip flexors, elementary school music teacher, quadriceps, tibialis Anterior, toe extension (EHL), plantarflexion Sensation intact: Present: other (Stocking pattern of sensory reduction noted bilaterally) Posture: Present: other (None) Mental Status Examination: Present: awake, alert, oriented to person, oriented to place, oriented to time, follows commands appropriately, answers questions appropriately, no agnosia, no aphasia, no aproxia Cranial nerve examination: Present: PERRL, EOMI, visual mendoza intact, corneal reflexes brisk symmetrically, sensory to face intact, mastication intact, no facial asymmetry is present, no dysarthria, hearing is intact symmetrically, soft palate elevates bilaterally upon phonation, gag reflex intact, flexes SCM and trapezius muscles symmetrically with full power, tongue protrudes midline, no atrophy or facial fasiculations present Cerebellar examination: Present: no dysmetria, performs finger to nose and heel to chowdary symmetrically without ataxia (Normal FTN), no gait ataxia (Gait not assessed), no truncal ataxia (Gait not assessed), no difficulty with rapid alternating movements Results - Laboratory Findings CBC and BMP: 02/09/18 05:31 02/09/18 05:31 Abnormal lab findings: Abnormal lab results WBC 11.5 K/mcL (4.3-11.1) H 02/09/18 05:31 RBC 4.02 M/mcL (4.19-5.50) L 02/09/18 05:31 Hgb 11.9 g/dL (12.9-16.9) L 02/09/18 05:31 Hct 35.6 % (37.5-50.1) L 02/09/18 05:31 PT 13.8 Seconds (9.4-12.1) H 02/07/18 05:36 BUN 37 mg/dL (8-23) H 02/09/18 05:31 Creatinine 1.46 mg/dL (0.70-1.30) H 02/09/18 05:31 Est GFR ( Amer) 56 (> 60) L 02/09/18 05:31 Est GFR (Non-Af Amer) 46 (> 60) L 02/09/18 05:31 Total Bilirubin 1.1 mg/dL (0.3-1.0) H 02/07/18 05:36 Serum Total Protein 5.8 g/dL (6.4-8.9) L 02/07/18 05:36 Globulin 2.1 g/dL (2.4-3.5) L 02/07/18 05:36 Urine Clarity Cloudy (Clear) A 02/09/18 18:40 Ur Specific Hillister 1.026 (1.010-1.025) H 02/09/18 18:40 Urine Protein 100 mg/dL (Neg-Trace) H 02/09/18 18:40 Urine Ketones 15 mg/dL (Negative) H 02/09/18 18:40 Urine Blood Moderate (Negative) H 02/09/18 18:40 Urine Bilirubin Small (Negative) H 02/09/18 18:40 Ur Squamous Epith Cells Moderate per lpf (None-Few) H 02/09/18 18:40 Consult Discharge Plan - Plan Referrals: Cher Angulo, CLINICAL NURSING DIRECTOR [Primary Care Provider] -
[2018-02-09] MEDS: Acetaminophen 325 MG TABLET PO PRN (23:18)
[2018-02-10] MEDS: *HR* OxyCODONE/APAP 7.5/325 TABLET PO PRN ×2 (01:30→17:11)
[2018-02-10] MEDS: Ipratropium/Albuterol Neb 3 ML IH SCH ×6 (03:31→19:50)
[2018-02-10] MEDS: *HR* Heparin 5,000 UNIT/ML VIAL SQ SCH ×3 (04:53→21:18)
[2018-02-10 06:07] LABS: Hematocrit 38.4 % (37.5-50.1); Hemoglobin 12.6 g/dL (12.9-16.9); Mean Corpuscular HGB Conc 32.8 g/dL (31.6-35.5); Mean Corpuscular Hemoglobin 29.3 pg (28.0-33.3); Mean Corpuscular Volume 89.3 fL (83.0-100.0); Mean Platelet Volume 10.1 fL (9.4-12.4); Platelet Count 198 K/mcL (140-400); Red Cell Distribution Width 12.2 % (11.5-14.5)
[2018-02-10] MEDS: traMADol 50 MG TABLET PO SCH (08:58)
[2018-02-10] MEDS: Cholecalciferol (D-3) 1,000 UNIT TABLET PO SCH (08:59)
[2018-02-10] MEDS: Multivit/Ca/Min/Fe/FA 1 TAB TABLET PO SCH (08:59)
[2018-02-10] MEDS: amLODIPine 5 MG TABLET PO SCH (09:03)
--- NOTE | 2018-02-10 15:04 | Discharge Summary ---
Date of Encounter: 02/10/18 Time of Encounter: 15:04 - Discharge Diagnosis (1) Neuropathy, peripheral Priority: Primary Status: Acute Comments: per hx. Previously evaluated by [facility] neuropathy clinic. Last seen 01/2017 and was recommended to have EMG/NCV study at that time. Now with worsening generalized weakness, deconditioning and falls. Head CT non-acute. Cervical and lumbar spine without severe/significant stenosis. Evaluated by neurology who noted symptoms consistent with peripheral neuropathy and did not feel symptoms were secondary to a central neurological etiology. Discussed with who did not want transfer to [facility] at this time. She will follow up outpatient once discharged from SNF. Qualifiers: Peripheral neuropathy type: polyneuropathy, unspecified Qualified Code(s): G62.9 - Polyneuropathy, unspecified (2) History of CVA (cerebrovascular accident) Priority: Secondary Status: Chronic Comments: per hx. Cont home Plavix, BB, statin (3) HTN (hypertension) Priority: Primary Status: Acute Comments: per hx. BP with home BB add low-dose amlodipine. Qualifiers: Hypertension type: essential hypertension Qualified Code(s): I10 - Essential (primary) hypertension (4) Recurrent falls Priority: Primary Status: Acute Comments: In the setting of peripheral neuropathy as noted above. Continue fall precautions. Cont PT/OT at SNF (5) CKD (chronic kidney disease), stage III Priority: Secondary Status: Acute Comments: per hx. Renal function at baseline. Avoid nephrotoxic agents as possible. Renal function can be monitored at SNF Hospital course: Please see assessment and plan for hospital course Discharge discussed with: patient, family - Time Spent with Patient Total time spent providing and/or coordinating discharge services: Less than 30 minutes - Discharge Medications Home Medications: Clopidogrel [Plavix] 75 mg PO DAILY 04/12/16 [History] Doxazosin Mesylate [Cardura Xl] 8 mg PO DAILY 04/12/16 [History] Esomeprazole Magnesium [Nexium] 20 mg PO DAILY 04/12/16 [History] Furosemide [Lasix] 20 mg PO QMWF 04/12/16 [History] Simvastatin [Zocor] 20 mg PO HS 04/12/16 [History] Tamsulosin HCl [Flomax] 0.4 mg PO DAILY 08/08/16 [History] traMADol [Ultram] 50 mg PO DAILY 08/08/16 [History] Cholecalciferol (Vitamin D3) [Vitamin D3] 2,000 unit PO DAILY 02/05/18 [History] Multivit-Min/FA/Lycopen/Lutein [Centrum Silver Men Tablet] 1 each PO DAILY 02/05 [History] Metoprolol [Lopressor] 25 mg PO BID 02/06/18 [History] OxyCODONE/APAP 7.5/325 [Percocet 7.5/325 MG] 1 tab PO BID PRN 02/06/18 [History] Polyethylene Glycol 3350 [MiraLAX] 17 gm PO DAILY 02/06/18 [History] amLODIPine [Norvasc] 5 mg PO DAILY tablet 02/10/18 [Rx] Allergies/Adverse Reactions: 3 Allergy/AdvReac Type Severity Reaction Status Date / Time pregabalin [From Lyrica] Allergy See Verified 02/06/18 09:54 Comments gabapentin [From Neurontin] AdvReac Shakiness Verified 02/06/18 09:54 Date of admission: 02/06/18 13:20 Primary care physician: Cher Angulo, Consults: 02/06/18 15:03 Consult to Occupational Therapy [CONS] Routine Comment: Evaluate, develop and implement POC Reason for Consult: Dispo planning, weakness Does patient have active BEDREST order?: Yes Is patient medically & hemodynamically stable?: Yes Consult to Physical Therapy [CONS] Routine Comment: Evaluate, develop and implement POC Reason for Consult: Dispo planning weakness Does patient have active BEDREST order?: Yes Is patient medically & hemodynamically stable?: Yes Consult to Supervisor [place] [CONS] Routine Reason for SW Consult: Possible placement/rehab 02/06/18 15:12 Consult to Neurology [CONS] Routine Consulting Provider: Neurology [facility] Reason for Consult: leg weakness Call Completed: Yes Discharging clinician: Nabila Sanchez Anticipated date of discharge: 02/10/18 - Constitutional Vitals: Temp Pulse Resp BP Pulse Ox 97.9 F 69 16 119/69 93 02/10/18 11:18 02/10/18 11:18 02/10/18 11:18 02/10/18 11:18 02/10/18 11:18 General appearance: Present: A&O X 2, A&O X 3, pleasant - Head Head exam: Present: atraumatic, normocephalic - Eye Eye exam: Present: PERRL, conjuntiva pink, sclera anicteric Pupils: Present: PERRL - Neck Neck exam general surgery: Present: supple, trachea midline. Absent: lymphadenopathy - Respiratory Respiratory exam: Present: CTAB. Absent: accessory muscle use, rales, rhonchi, wheezes - Cardiovascular Cardiovascular exam: Present: RRR, +S1, +S2. Absent: diastolic murmur, gallop, rubs, systolic murmur - GI/Abdominal GI/Abdominal exam: Present: normal bowel sounds, soft, no peritoneal signs. Absent: distended, tenderness - Extremities Exam Extremities exam: Present: pedal edema, warm, radial pulses palpable and symmetrical. Absent: calf tenderness, cyanotic - Neurological Exam Neurological exam: Present: CN II-XII intact, oriented X3, no focal deficits. Absent: strengths equal and symetr throughout, pronater drift, facial droop, speech deficit Additional comments: Bilateral lower extremity weakness - Skin Skin exam: Present: dry, intact - Patient Status Disposition: Transfer SNF Condition: Fair Functional capacity at discharge: wheelchair bound Overall status at discharge: patient is progressing back to baseline - Discharge Instructions Follow Up With: Cher Angulo PLASTERER APPRENTICE [Primary Care Provider] - - Diet and Activity Activity: as per physical therapy Diet: advance to your usual diet
--- NOTE | 2018-02-10 22:26 | Electrocardiograph Report ---
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
[2018-02-11] MEDS: Ipratropium/Albuterol Neb 3 ML IH SCH ×5 (00:15→15:31)
[2018-02-11] MEDS: *HR* Heparin 5,000 UNIT/ML VIAL SQ SCH (05:20)
[2018-02-11] MEDS: *HR* OxyCODONE/APAP 7.5/325 TABLET PO PRN ×2 (06:18→14:48)
[2018-02-11] MEDS: Furosemide 20 MG TABLET PO SCH (08:24)
[2018-02-11] MEDS: traMADol 50 MG TABLET PO SCH (08:24)
[2018-02-11] MEDS: amLODIPine 5 MG TABLET PO SCH (08:24)
[2018-02-11] MEDS: Cholecalciferol (D-3) 1,000 UNIT TABLET PO SCH (08:24)
[2018-02-11] MEDS: Multivit/Ca/Min/Fe/FA 1 TAB TABLET PO SCH (08:24)
[2018-02-11 11:44] VITALS: BP 120/76
--- NOTE | 2018-02-11 13:51 | Physician Discharge Referral ---
[facility] Referral Info Transfer To: [facility] Provider in Charge: elfego thomas Provider in Charge after Transfer: PCP - Diagnosis (1) CKD (chronic kidney disease), stage III Priority: Primary Status: Acute (2) History of CVA (cerebrovascular accident) Priority: Primary Status: Chronic (3) HTN (hypertension) Priority: Primary Status: Acute (4) Neuropathy, peripheral Priority: Primary Status: Acute (5) Recurrent falls Priority: Primary Status: Acute Prognosis: Fair Aware of Diagnosis: Patient, Family Aware of Prognosis: Patient, Family - Transfer Medications Home Medications: Clopidogrel [Plavix] 75 mg PO DAILY 04/12/16 [History] Doxazosin Mesylate [Cardura Xl] 8 mg PO DAILY 04/12/16 [History] Esomeprazole Magnesium [Nexium] 20 mg PO DAILY 04/12/16 [History] Furosemide [Lasix] 20 mg PO QMWF 04/12/16 [History] Simvastatin [Zocor] 20 mg PO HS 04/12/16 [History] Tamsulosin HCl [Flomax] 0.4 mg PO DAILY 08/08/16 [History] traMADol [Ultram] 50 mg PO DAILY 08/08/16 [History] Cholecalciferol (Vitamin D3) [Vitamin D3] 2,000 unit PO DAILY 02/05/18 [History] Multivit-Min/FA/Lycopen/Lutein [Centrum Silver Men Tablet] 1 each PO DAILY 02/05 [History] Metoprolol [Lopressor] 25 mg PO BID 02/06/18 [History] OxyCODONE/APAP 7.5/325 [Percocet 7.5/325 MG] 1 tab PO BID PRN 02/06/18 [History] Polyethylene Glycol 3350 [MiraLAX] 17 gm PO DAILY 02/06/18 [History] amLODIPine [Norvasc] 5 mg PO DAILY tablet 02/10/18 [Rx] Allergies/Adverse Reactions: 3 Allergy/AdvReac Type Severity Reaction Status Date / Time pregabalin [From Lyrica] Allergy See Verified 02/06/18 09:54 Comments gabapentin [From Neurontin] AdvReac Shakiness Verified 02/06/18 09:54 - Respiratory Orders None Smoking Cessation: Smoking cessation has been advised. For more information, call the [place] Tobacco Quit Line at 6-057-PNIJ-NOW. - Advance Directives Living Will: Yes Power of Outreach Associate: No Code Status: Full Code - Mobility Orders Ambulate - Rehabiliation Orders Rehab Potential: Fair Rehab Orders: Evaluation for Physical Therapy, Evaluation for Occupational Therapy - Diet Orders Cardiac CERTIFICATION: I certify that the transfer of the above named patient to an Extended Care Facility is necessary for the continuing treatment of the diagnosis listed. The above information is true and accurate reflection of patient's current condition. Confidential - Redisclosure prohibited without a patient's written consent.
--- NOTE | 2018-02-11 19:17 | Internal Med Progress Note ---
Date of Encounter: 02/11/18 Time of Encounter: 19:15 - Assessment and plan (1) CKD (chronic kidney disease), stage III Status: Acute Assessment and plan: Renal function at baseline. Avoid nephrotoxic agents. Monitor renal function at SNF (2) History of CVA (cerebrovascular accident) Status: Chronic Assessment and plan: Continue Plavix beta chi and statin (3) HTN (hypertension) Status: Acute Assessment and plan: Stable continue home medications and low-dose amlodipine Qualifiers: Hypertension type: essential hypertension Qualified Code(s): I10 - Essential (primary) hypertension (4) Neuropathy, peripheral Status: Acute Assessment and plan: Continue chronic pain medications Qualifiers: Peripheral neuropathy type: polyneuropathy, unspecified Qualified Code(s): G62.9 - Polyneuropathy, unspecified (5) Recurrent falls Status: Acute Assessment and plan: Transfer to half-way facility with continued PT/OT. This is in the setting of peripheral neuropathy - Subjective Interval history: Patient aware he is for transfer to skilled facility today. He is complaining of leg pain and has rang the [facility] for some pain medicine. He denies any fevers chills shortness of breath or chest pain. His significant other is at the bedside and all her questions were answered. - Constitutional Vitals: Temp Pulse Resp BP Pulse Ox 98.4 F 69 18 120/76 91 02/11/18 11:44 02/11/18 11:44 02/11/18 11:44 02/11/18 11:44 02/11/18 11:44 General appearance: Present: cooperative, A&O X 2, A&O X 3, pleasant, answers questions appropriately - Head Head exam: Present: atraumatic, normocephalic - Eye Eye exam: Present: PERRL, conjuntiva pink, sclera anicteric Pupils: Present: PERRL - Neck Neck exam general surgery: Present: supple, trachea midline. Absent: lymphadenopathy - Respiratory Respiratory exam: Present: CTAB. Absent: accessory muscle use, rales, rhonchi, wheezes - Cardiovascular Cardiovascular exam: Present: RRR, +S1, +S2. Absent: diastolic murmur, gallop, rubs, systolic murmur - GI/Abdominal GI/Abdominal exam: Present: normal bowel sounds, soft, no peritoneal signs. Absent: distended, tenderness - Extremities Exam Extremities exam: Present: pedal edema, warm, radial pulses palpable and symmetrical. Absent: calf tenderness, cyanotic - Neurological Exam Neurological exam: Present: alert, oriented X3, no focal deficits. Absent: pronater drift, facial droop, speech deficit - Skin Skin exam: Present: dry, normal color, warm Internal Medicine: Result - Labs CBC & Chem 7: 02/10/18 04:56 02/09/18 05:31 - ABG Interpretation ABG results: PT/INR, D-dimer PT 13.8 Seconds (9.4-12.1) H 02/07/18 05:36 Consult Discharge Plan - Plan Referrals: Cher Angulo, COPY CHASER [Primary Care Provider] -
== END 2018-02-11 16:15 ==
LOC: EMEROO 09:44 → 3BNU 09:44
PROVIDERS: ADMIT Student in an Organized Health Care Education/Training Program; ATTEND Registered Nurse